=== PATIENT | female | born 1985 | race Caucasian/White ===

== ENCOUNTER → 2017-04-22 | Outpatient (CLI) | payer BC | END | disposition home or self-care (01) | LOC: RAD.S 10:42 | DX: O99.89 Other specified diseases and conditions complicating pregnancy, childbirth and the puerperium (principal); R10.2 Pelvic and perineal pain; Z3A.01 Less than 8 weeks gestation of pregnancy; Z87.898 Personal history of other specified conditions ==

== ENCOUNTER → 2017-04-24 | Outpatient (CLI) | payer BC, SELFPAY ==
--- NOTE | ~2017-04-24 | ECH ---
Transthoracic Echocardiography Report (TTE) Demographics Patient Name GILBERT LINDO Date of Study 04/24/2017 M Patient Number [id number] Visit Number [id number] Date of 1985 Room Number Accession Number [id number] Gender Female Age 32 year(s) Referring Trell Joyce MD Sponge Diver Lesley Ferrara [facility] Physician Physician Interpreting Kat Naranjo MD Non Emergency Services Ambulance Driver Physician Supervising Ordering Physician Trell Joyce MD, MD/[facility] Nurse Stress Life Skills Educator Conclusions Summary Technically adequate exam. The estimated left ventricular ejection fraction is 65%. The aortic valve was not well imaged but appears sclerotic. There is moderate aortic stenosis by the Continuity Equation. The peak velocity is 3.12 m/s, the mean gradient is 22 mmHg, and the valve area based on the continuity equation is 0.73 cm2, stroke volume index is 30ml/m2.Peak velocity at suprasternal notch. There is trivial aortic regurgitation by color Doppler. Bicuspid aortic valve seen on RUTH done in 2008. No other significant valvular abnormalities. Procedure Type of Study TTE procedure:Echo Complete SF. Procedure Date Date: 04/24/2017 Start: 01:00 Technical Quality: Adequate visualization Indications:Dizziness and Aortic regurgitation. Appropriate Use Criteria: 9 Height: 61 inches Weight: 165 pounds BSA: 1.74 m Rhythm: Within normal limits HR: 64 bpm BP: 84/42 mmHg M-Mode/2D Measurements LV Diastolic Dimension: 4.44 cm LV Systolic Dimension: 2.88 cm LV Septum Diastolic: 0.86 cm LV PW Diastolic: 0.94 cm AO Root Dimension: 2.17 cm Cardiac Output: 3.33 l/min LA Dimension: 3.2 cm Cardiac Index: 1.91 l/min*m RV Diastolic Dimension: 3.48 cm LA volume index: 24 ml/m LVOT: 1.85 cm LVOT VTI: 19.37 cm RV Base: 3.2 cm LV Stroke volume: 52.04 ml RV Mid: 2.4 cm LV Stroke volume index: 29.91 ml/m RV Length: 7.2 cm TAPSE: 2 cm TDI-S': 13 cm/s Doppler Measurements AV Peak Velocity: 3.12 m/s MV Peak E-Wave: 1.1 m/s AV Peak Gradient: 38.94 mmHg MV Peak A-Wave: 0.8 m/s AV Mean Gradient: 21.97 mmHg MV E/A Ratio: 1.37 LVOT Peak Velocity: 0.97 m/s MV P1/2t: 60.8 msec AV Area (Continuity):0.73 cm AV P1/2t: 640.8 msec MV Deceleration Time: 215.5 msec TR Velocity:1.83 m/s MV Area (PHT): 3.62 cm TR Gradient:13.44 mmHg PV Peak Velocity: 1.01 m/s Estimated RAP:3 mmHg PV Peak Gradient: 4.1 mmHg Estimated RVSP: 16 mmHg Estimated PASP: 16.44 mmHg RA Area: 13.96 cm Findings Left Ventricle The left ventricle is normal in size . Diastolic assessment reveals normal relaxation. Right Ventricle Normal right ventricle structure and function. Left Atrium Normal left atrial size. Right Atrium Normal right atrial size. Mitral Valve Normal mitral valve structure and function. Aortic Valve The aortic valve was not well imaged but appears sclerotic. There is moderate aortic stenosis by the Continuity Equation. The peak velocity is 3.12 m/s, the mean gradient is 22 mmHg, and the valve area based on the continuity equation is 0.73 cm2, stroke volume index is 30ml/m2.Peak velocity at suprasternal notch. There is trivial aortic regurgitation by color Doppler. Bicuspid aortic valve seen on RUTH done in 2008. Tricuspid Valve Normal tricuspid valve structure and function. Trivial tricuspid regurgitation by color Doppler. Pulmonic Valve Normal pulmonic valve structure and function. Trivial pulmonic valve regurgitation by color Doppler. Pericardial Effusion No evidence of pericardial effusion. Miscellaneous Visualized portions of the aortic root and ascending aorta appear normal in size. Pleural Effusion No evidence of pleural effusion. Signature
== END | disposition home or self-care (01) ==
LOC: CARD 12:29
DX: R42 Dizziness and giddiness (principal); I35.2 Nonrheumatic aortic (valve) stenosis with insufficiency

== ENCOUNTER → 2017-04-30 | Outpatient (CLI) | payer BC, SELFPAY | END | disposition home or self-care (01) | LOC: RAD.S 16:50 | DX: O99.89 Other specified diseases and conditions complicating pregnancy, childbirth and the puerperium (principal); R10.2 Pelvic and perineal pain; Z3A.01 Less than 8 weeks gestation of pregnancy ==

== ENCOUNTER → 2017-05-11 | Outpatient (CLI) | payer BC | END | disposition home or self-care (01) | LOC: RAD.S 05-08 16:30 | DX: O99.89 Other specified diseases and conditions complicating pregnancy, childbirth and the puerperium (principal); R10.2 Pelvic and perineal pain; R79.89 Other specified abnormal findings of blood chemistry; Z3A.01 Less than 8 weeks gestation of pregnancy ==